=== PATIENT | male | born 1950 | race Caucasian/White ===

== ENCOUNTER 2017-02-05 18:03 | Emergency (ER) | payer SELFPAY ==
[~2017-02-05] VITALS: Ht 177.8 cm; Wt 90.1 kg
[2017-02-05 20:20] VITALS: BP 124/85
== END 2017-02-05 20:25 | disposition home or self-care (01) | DRG 305 ==
LOC: ED 18:03
DX: I10 Essential (primary) hypertension (principal)

== ENCOUNTER 2022-03-11 15:57 | Emergency (ER) | payer MEDICARE ==
[2022-03-11] VITALS (8 sets, daily range): BP systolic 148–166; BP diastolic 81–104
[~2022-03-11] VITALS: Ht 177.8 cm; Wt 77.2 kg
== END 2022-03-11 17:35 | disposition home or self-care (01) ==
LOC: ED 15:57
PROC: 0HQ1XZZ Repair Face Skin, External Approach (ICD-10-PCS; principal; 2022-03-11)
DX: S01.21XA Laceration without foreign body of nose, initial encounter (principal); S01.81XA Laceration without foreign body of other part of head, initial encounter; W20.8XXA Other cause of strike by thrown, projected or falling object, initial encounter; Y93.K9 Activity, other involving animal care; Y92.73 Farm field as the place of occurrence of the external cause